=== PATIENT | female | born 1980 | race Caucasian/White ===

== ENCOUNTER 2016-12-04 08:00 | Outpatient (RCR) | payer BC ==
[~2016-12-04 08:00] MED LIST: LEVEMIR FLEX100 U/ML SQ; NOVOLOG FLEX100 U/ML SQ
== END 2016-12-05 09:17 | disposition home or self-care (01) ==
LOC: WSPT 08:00
DX: M54.5 Low back pain (principal); G89.29 Other chronic pain

== ENCOUNTER → 2018-01-22 | Outpatient (CLI) | payer BC | LOC: COL.RAD 01-19 12:30 | DX: M47.817 Spondylosis without myelopathy or radiculopathy, lumbosacral region (principal); D18.09 Hemangioma of other sites; M51.27 Other intervertebral disc displacement, lumbosacral region ==

== ENCOUNTER → 2019-07-28 | Outpatient (CLI) | payer BC ==
[~2019-07-28] MED LIST changes: +LORTAB 5/500 501 TAB PO; +NO HOME MEDICATIONS
== END ==
LOC: MHCPAIN 09:15
DX: M53.3 Sacrococcygeal disorders, not elsewhere classified (principal); M54.16 Radiculopathy, lumbar region
CPT/HCPCS: G0463

== ENCOUNTER → 2020-04-18 | Outpatient (CLI) | payer BC | LOC: MC.RAD 11:23 | DX: Z12.31 Encounter for screening mammogram for malignant neoplasm of breast (principal) ==

== ENCOUNTER → 2021-02-02 | Outpatient (CLI) | payer OTHER | LOC: COL.RAD 07:37 | DX: M25.512 Pain in left shoulder (principal) | CPT/HCPCS: J3301; Q9967 ==

== ENCOUNTER → 2021-05-04 | Outpatient (CLI) | payer OTHER | LOC: COL.RAD 07:39 | DX: M67.813 Other specified disorders of tendon, right shoulder (principal) | CPT/HCPCS: A9585; Q9967 ==

== ENCOUNTER → 2021-05-22 | Outpatient (CLI) | payer BC | LOC: MC.RAD 04-24 14:00 | DX: Z12.31 Encounter for screening mammogram for malignant neoplasm of breast (principal) ==

== ENCOUNTER 2022-03-07 11:28 | Emergency (ER) | payer OTHER, BC ==
[~2022-03-07] VITALS: Ht 162.6 cm; Wt 96.4 kg
[2022-03-07 11:39] VITALS: BP 134/88; TEMP 97.5
[2022-03-07] MEDS ORDERED: NORCO 325 MG-51 TAB PO (12:56)
[2022-03-07 13:06] VITALS: PULSE 90
[2022-03-08] MEDS ORDERED: PERCOCET 325 MG1 TA2 PO (14:35)
== END 2022-03-07 13:06 | disposition home or self-care (01) ==
LOC: COL.ER 11:28
DX: S46.912A Strain of unspecified muscle, fascia and tendon at shoulder and upper arm level, left arm, initial encounter (principal); Z28.310 Unvaccinated for COVID-19; Z87.891 Personal history of nicotine dependence; W20.8XXA Other cause of strike by thrown, projected or falling object, initial encounter; Y92.59 Other trade areas as the place of occurrence of the external cause; Y99.0 Civilian activity done for income or pay
CPT/HCPCS: J1885

== ENCOUNTER 2022-03-08 14:04 | Emergency (ER) | payer OTHER, BC ==
[~2022-03-08] VITALS: Ht 162.6 cm; Wt 96.4 kg
[~2022-03-08 14:04] MED LIST changes: +NORCO 325 MG-51 TAB PO
[2022-03-08 14:07] VITALS: BP 141/87; TEMP 98
[2022-03-08] MEDS ORDERED: PERCOCET 325 MG1 TA2 PO (14:35)
[2022-03-08 15:13] VITALS: PULSE 92
== END 2022-03-08 15:14 | disposition home or self-care (01) ==
LOC: COL.ER 14:04
DX: M25.512 Pain in left shoulder (principal); Z28.310 Unvaccinated for COVID-19; X50.0XXA Overexertion from strenuous movement or load, initial encounter; Y92.59 Other trade areas as the place of occurrence of the external cause; Y99.0 Civilian activity done for income or pay
CPT/HCPCS: J1885

== ENCOUNTER → 2022-07-09 | Outpatient (CLI) | payer BC ==
[~2022-07-09] MED LIST changes: +PERCOCET 325 MG1 TA2 PO
== END ==
LOC: MHCPAIN 09:34
DX: M54.50 Low back pain, unspecified (principal); M53.3 Sacrococcygeal disorders, not elsewhere classified; M79.2 Neuralgia and neuritis, unspecified
CPT/HCPCS: G0463

== ENCOUNTER → 2022-07-22 | Outpatient (CLI) | payer BC | LOC: MHCPAIN 14:49 | DX: M53.3 Sacrococcygeal disorders, not elsewhere classified (principal); M47.817 Spondylosis without myelopathy or radiculopathy, lumbosacral region | CPT/HCPCS: J3301; Q9967 ==

== ENCOUNTER → 2022-08-13 | Outpatient (CLI) | payer BC | LOC: COL.RAD 10:58 | DX: M25.551 Pain in right hip (principal); M25.552 Pain in left hip ==

== ENCOUNTER → 2022-08-13 | Outpatient (CLI) | payer BC | LOC: MHCPAIN 09:47 | DX: M54.31 Sciatica, right side (principal); M53.3 Sacrococcygeal disorders, not elsewhere classified; M25.551 Pain in right hip; M25.552 Pain in left hip | CPT/HCPCS: G0463 ==

== ENCOUNTER → 2023-03-27 | Outpatient (CLI) | payer BC | LOC: COL.RAD 08:35 | DX: M51.26 Other intervertebral disc displacement, lumbar region (principal); M51.27 Other intervertebral disc displacement, lumbosacral region | CPT/HCPCS: A9575; Q9967 ==